=== PATIENT | female | born 1980 | race Caucasian/White ===

== ENCOUNTER → 2021-12-24 11:06 | Outpatient (BNVA) | payer BC, MEDICAID, SELFPAY | PROVIDERS: PCP Nurse Practitioner Family; Visit Provider Nurse Practitioner Family | DX: E11.9 Type 2 diabetes mellitus without complications (principal); E03.9 Hypothyroidism, unspecified; E55.9 Vitamin D deficiency, unspecified; E78.5 Hyperlipidemia, unspecified; E61.1 Iron deficiency; I10 Essential (primary) hypertension | CPT/HCPCS: 80053; 80061; 82306; 83036; 83550; 84439; 84443; 84481 ==

== ENCOUNTER 2022-01-27 11:47 | Outpatient (CLI) | payer BC, MEDICAID, SELFPAY ==
--- NOTE | 2022-01-27 11:45 | US_ITS ---
WS: [id number] TRANSABDOMINAL AND TRANSVAGINAL PELVIC ULTRASOUND HISTORY: N92.1 - Excessive and frequent menstruation with irregular periods. COMPARISON: None available. Uterus: 9.2 cm x 6.3 cm x 5.2 cm. Poorly visualized uterus. Uterus appears slightly lobulated. There may be an anterior fibroid measuring 2.8 x 2.5 x 3.5 cm. No shadowing. Endometrium: 1.1 cm. Normal homogeneity and size. Right ovary: 2.4 cm x 3.0 cm x 2.2 cm; no solid or cystic mass. Normal vascularity. Small follicle me asures 2.0 x 1.6 x 2.0 cm. Left ovary: 2.1 cm x 1.8 cm x 1.2 cm; no solid or cystic mass. Normal vascularity. No free fluid in the cul-de-sac. US/US pelvic complete* [id number] IMPRESSION: 1. Limited evaluation of the uterus. 2. Possible anterior myometrial fibroid measuring 2.8 x 2.5 x 3.5 cm. There is mild heterogeneity and lobulation along the anterior myometrium. No shadowing as expected from a fibroid. 3. Negative ovaries.
== END 2022-01-27 11:48 | disposition home or self-care (01) ==
LOC: RAD 11:47
PROVIDERS: PCP Nurse Practitioner Family; Visit Provider Nurse Practitioner Family
DX: N92.1 Excessive and frequent menstruation with irregular cycle (principal)
CPT/HCPCS: 76856

== ENCOUNTER → 2022-03-27 10:00 | Outpatient (BNVA) | payer BC, MEDICAID, SELFPAY | PROVIDERS: PCP Nurse Practitioner Family; Visit Provider Obstetrics & Gynecology | DX: R87.619 Unspecified abnormal cytological findings in specimens from cervix uteri (principal); D25.9 Leiomyoma of uterus, unspecified | CPT/HCPCS: 87624; 88305 ==

== ENCOUNTER → 2022-04-28 11:58 | Outpatient (BNVA) | payer BC, MEDICAID, SELFPAY | PROVIDERS: PCP Nurse Practitioner Family; Visit Provider Nurse Practitioner Family | DX: G43.909 Migraine, unspecified, not intractable, without status migrainosus (principal); E78.5 Hyperlipidemia, unspecified; E11.9 Type 2 diabetes mellitus without complications; I10 Essential (primary) hypertension; R53.83 Other fatigue; E03.9 Hypothyroidism, unspecified | CPT/HCPCS: 80053; 80061; 83036; 85025 ==

== ENCOUNTER → 2022-06-03 13:17 | Outpatient (BNVA) | payer BC, MEDICAID, SELFPAY | PROVIDERS: PCP Nurse Practitioner Family; Visit Provider Obstetrics & Gynecology | DX: R87.619 Unspecified abnormal cytological findings in specimens from cervix uteri (principal) | CPT/HCPCS: 88305 ==

== ENCOUNTER 2022-07-07 10:38 | Observation (INO) | payer BC, MEDICAID, SELFPAY ==
[2022-07-06 12:26] LABS: Basophils # 0.1 10^3/uL (0.0-0.1); Basophils % 0.8 %; Eosinophils # 0.3 10^3/uL (0.0-0.8); Eosinophils % 3.5 %; Hemoglobin 13.5 g/dL (11.5-15.3); Lymphocytes # 1.9 10^3/uL (0.8-4.8); Lymphocytes % 22.4 %; Mean Corpuscular HGB Conc 32.9 g/dL (30.0-36.0); Mean Corpuscular Hemoglobin 29.6 pg (28.0-34.0); Mean Corpuscular Volume 89.9 fl (81-99); Mean Platelet Volume 10.3 fL (7.4-10.4); Monocytes # 0.5 10^3/uL (0.2-0.9); Monocytes % 6.2 %; Neutrophils # 5.66 10^3/uL (1.8-7.7); Neutrophils % 66.6 %; Nucleated Red Blood Cells % 0 %; Platelet Count 312 10^3/cmm (130-400); Red Blood Count 4.56 10^6/uL (4.1-5.3); Red Cell Distribution Width 12.8 % (12.1-15.1); White Blood Count 8.5 10^3/uL (4.0-10.0)
[2022-07-06 12:40] LABS: OR HCG Qualitative Urine Negative (Negative)
[2022-07-06 12:41] LABS: Anion Gap 13.2 (5-19); Calcium 9.6 mg/dL (8.5-10.5); Carbon Dioxide 29 mmol/L (22-29); Chloride 101 mmol/L (98-107); Glomerular Filtration Rate 109.1 mL/min (90-130); Glucose 93 mg/dL (65-115); Osmolality Calculated 285 mOsm/kg (285-295); Potassium 4.2 mmol/L (3.5-5.1); Sodium 139 mmol/L (136-145)
[2022-07-06 12:42] VITALS: BMI 38.4
[2022-07-06 12:42] LABS: Blood Urea Nitrogen 4 mg/dL (6-20)
--- NOTE | 2022-07-06 13:12 | ANES.PREANE2 ---
Pre-Anesthetic Assessment Height/Weight: Height 1.65 m Weight 104.78 kg Preop Diagnosis: uterine fibroids, AUB, abnormal pap Operation Date: 07/07/22 07:00 Proposed Procedures p Laparoscopic assisted vaginal hysterectomy, bilateral salpingo-oophorectomy 46920,N81.4, N92.0,R87.610(Not Applicable) - Patsy Crouch MD Familial anesthetic complications: None Social Tobacco and No alcohol Exam alert, oriented x 3, clear to auscultation bilaterally and regular rate & rhythm CV/HEM Hypertension Metabolic Diabetes Mellitus, Hyperlipidemia, Morbid Obesity and Thyroid Disease Neuropsych Headache Anesthetic Plan ASA status: 3 Anesthesia: General Risk of > 500 ml blood loss (7ml/kg in children): No Medications/Allergies Home Medications Medication Instructions Recorded Confirmed Last Taken Type aspirin 325 mg tablet 325 mg PO DAILY 12/24/21 07/06/22 07/01/22 History cetirizine 10 mg tablet (Zyrtec) 10 mg PO BEDTIME 12/24/21 07/06/22 07/06/22 History docusate sodium 250 mg capsule 250 mg PO BEDTIME 12/24/21 07/06/22 07/06/22 History vitamin B complex (B 1 tab PO DAILY 12/24/21 07/06/22 07/06/22 History Complex-Vitamin B12 tablet) biotin 5 mg capsule 5 mg PO DAILY 03/27/22 07/06/22 07/06/22 History naproxen 500 mg tablet (Naprosyn) 500 mg PO .COMPLEX #30 tabs 04/28/22 07/06/22 07/06/22 Rx citalopram 40 mg tablet 40 mg PO BEDTIME 07/06/22 07/06/22 07/06/22 History ferrous sulfate 325 mg (65 mg 325 mg PO DAILY 07/06/22 07/06/22 07/06/22 History iron) tablet liraglutide 0.6 mg/0.1 mL (18 mg/3 1.2 mg SUBCUT BEDTIME 07/06/22 07/06/22 07/06/22 History mL) subcutaneous pen injector (Victoza 3-Alpesh) metformin 1,000 mg tablet 1,000 mg PO BID 07/06/22 07/06/22 07/06/22 History pen needle, diabetic 32 gauge x #200 ea 07/06/22 07/06/22 Unknown Rx 04/22 (TechLITE Pen Needle) propranolol 120 mg capsule,24 120 mg PO BEDTIME 07/06/22 07/06/22 07/06/22 History hr,extended release simvastatin 40 mg tablet 40 mg PO BEDTIME 07/06/22 07/06/22 07/05/22 History thyroid (pork) 90 mg tablet (MARKETING PROGRAMS MANAGER 90 mg PO DAILY 07/06/22 07/06/22 07/06/22 History Thyroid) venlafaxine 75 mg capsule,extended 75 mg PO DAILY 07/06/22 07/06/22 07/06/22 History release 24 hr Allergies Allergy/AdvReac Type Severity Reaction Status Date / Time hydrocodone [From Lortab] Allergy ADR-Migrain Verified 07/06/22 12:15 e [facility] Anesthesia Medical History (Updated 07/06/22 @ 12:36 by Patsy Crouch MD) Iron deficiency Psychiatric care RhD negative Type 2 diabetes mellitus Surgical History (Updated 07/06/22 @ 12:36 by Patsy Crouch MD) History of appendectomy History of carpal tunnel surgery History of tonsillectomy History of tubal ligation Family History Grandmother Breast cancer Colon cancer Stroke Mother Diabetes Heart disease Hypercholesteremia Hypertension Thyroid disease Denies family history of Ovarian cancer Uterine cancer Data Anesthesia 07/06/22 12:05 07/06/22 12:05 Short CBC 07/06/22 Range/Units 12:05 WBC 8.5 (4.0-10.0) 10^3/uL Hgb 13.5 (11.5-15.3) g/dL Hct 41.0 (37.0-47.0) % MCV 89.9 (81-99) fl Plt Count 312 (130-400) 10^3/cmm Neut % (Auto) 66.6 % Neut # (Auto) 5.66 (1.8-7.7) 10^3/uL BMP 07/06/22 12:05 Sodium 139 Potassium 4.2 Chloride 101 Carbon Dioxide 29 BUN 4 L Creatinine 0.6 Glucose 93 Calcium 9.6 Blood Bank 07/06/22 12:05 Blood Type O Negative Rho(D) Type Negative Antibody Screen Negative Cardiac Studies: No Data to Display
[2022-07-07] VITALS (16 sets, daily range): BP systolic 91–135; BP diastolic 60–95; PULSE 48–98; RESP 14–18; TEMP 36.1–37; O2SAT 90–100
[2022-07-07 06:20] LABS: Glucose Point of Care 144 mg/dL (70-110)
[2022-07-07] MEDS: CELEcoxib 200 mg Capsule 400 MG PO (06:30)
[2022-07-07] MEDS: gabapentin 300 mg Capsule PO (06:30)
[2022-07-07] MEDS: phenazopyridine 100 mg Tablet 200 MG PO ×3 (06:31→22:02)
[2022-07-07] MEDS: scopolamine 1.5 Patch 1 PATCH TRANSDERMA (06:31)
--- NOTE | 2022-07-07 06:41 | P.ANESUD_ITS ---
Pre-Anesthetic Update Pre-Anesthetic Assessment: Date of Surgery/Procedure: 07/07/22 Preop Ann gnosis: uterine fibroids, AUB, abnormal pap Proposed Procedure: Operation Date: 07/07/22 07:00 Proposed Procedures p Laparoscopic assisted vaginal hysterectomy, bilateral salpingo-oophorectomy 34032,N81.4, N92.0,R87.610(Not Applicable) - Patsy Crouch MD Any changes to Pre-Anesthetic Assessment?: No Last Intake: Intake Last Liquid Date 07/06/22 Last Liquid Time 21:00 Last Solid Date 07/06/22 Last Solid Time 21:00 Labs Last 48hrs: Short CBC 07/06/22 Range/Units 12:05 WBC 8.5 (4.0-10.0) 10^3/ uL Hgb 13.5 (11.5-15.3) g/dL Hct 41.0 (37.0-47.0) % MCV 89.9 (81-99) fl Plt Count 312 (130-400) 10^3/c mm Neut % (Auto) 66.6 % Neut # (Auto) 5.66 (1.8-7.7) 10^3/u L BMP 07/06/22 12:05 Sodium 139 Potassium 4.2 Chloride 101 Carbon Dioxide 29 BUN 4 L Creatinine 0.6 Glucose 93 Calcium 9.6 Blood Bank 07/06/22 12:05 Blood Type O Negative Rho(D) Type Negative Antibody Screen Negative Vitals: Temperature 97 F L 07/07/22 06:35 Temperature Source Temporal Artery S can 07/07/22 06:35 Pulse Rate 97 07/07/22 06:35 Pulse Rhythm 07/07/22 06:08 Pulse Strength 3+ Normal 07/07/22 06:08 Respiratory Rate 18 07/07/22 06:35 Blood Pressure 124/95 07/07/22 06:35 Blood Pressure Kacey n 104 07/07/22 06:35 Pulse Oximetry 99 07/07/22 06:35 Oxygen Delivery Me thod 07/07/22 06:35 Exam: Pre-Anes Outpt Exam: alert, oriented x 3, clear to auscultation bilaterally and regular rate & rhythm Cardiac Studies: No Data to Display
--- NOTE | 2022-07-07 07:00 | W.PM.OPSUD ---
Surgery/Procedure H&P Update DATE OF PROCEDURE: July 07, 2022 DATE H&P PERFORMED: 07/06/22 H&P UPDATE INFORMATION: I have reviewed H&P completed within last 30 days, I have examined patient prior to procedure and No changes to prior documentation PREOP DIAGNOSIS: uterine fibroids, AUB, abnormal pap PLANNED PROCEDURE: Operation Date: 07/07/22 07:00 Proposed Procedures p Laparoscopic assisted vaginal hysterectomy, bilateral salpingo-oophorectomy 10541,N81.4, N92.0,R87.610(Not Applicable) - Patsy Crouch MD Related Problem List Diagnoses (1) Uterine prolapse: (2) ASCUS with positive high risk HPV: (3) Uterine fibroid: (4) Menometrorrhagia:
[2022-07-07] MEDS: ceFAZolin 2,000 MG in sodium chloride 0.9% (plus) 50 ML 100 MG IV ×3 (07:08→22:01)
[2022-07-07] MEDS: vasopressin 20 unit/mL INJ INJECTION ×2 (08:21→08:29)
[2022-07-07] MEDS: sodium chloride 0.9% 1,000 ML 30 ML IV (08:26)
[2022-07-07 09:43] LABS: Urine Appearance Cloudy (CLEAR); Urine Color Orange (Yellow)
[2022-07-07 09:44] LABS: Add Urine Microscopic? YES
--- NOTE | 2022-07-07 10:28 | P.OP_ITS ---
Operative Report Date of procedure: July 07, 2022 Pre-op diagnosis: Preop Diagnosis uterine fibroids, AUB, abnormal pap Post-op diagnosis: same Post-op findings: 10 week sized uterus. Normal appearing tubes and ovaries. Mild pelvic adhesions Procedure done: LAVH with BSO Specimens removed/disposition: uterus, tubes and ovaries sent to pathology Surgeon: Patsy Crouch Anesthesia: General Estimated blood loss (mL): 300 IV fluids (mL): 1,600 Urine output (mL): 200 Complications: none Findings: enlarged uterus. Normal appearing tubes and ovaries. Condition: stable Disposition: PACU Procedure: The patient was taken to the operating room where general anesthesia was administered and found to be adequate. She was prepped and draped in the normal sterile fashion in the dorsal lithotomy position in [facility]. A Tyson catheter was placed. A weighted speculum was placed into the vagina and the anterior lip of the cervix was grasped with a single tooth tenaculum. The Zumi uterine manipulator was placed. The weighted speculum was removed. The gloves were changed and attention was turned to the abdomen. A 5 mm supraumbilical incision was made. Using a 5 mm port with the camera, the port was placed into the abdomen. The abdomen was insufflated. Two low, lateral 5 mm ports were placed on the left and right under direct visualization from the camera. The right tube was grasped and elevated. Using the laparoscopic cautery, the infundibulopelvic ligament was cauterized and cut inferior to the tube and ovary. This cautery was followed along the broad ligament to the uterus. This was performed the same way on the left. The uteroovarian ligaments as well as the round ligaments were ligated. Attention was then turned to the vaginal portion of the procedure. The weighted speculum was placed into the vagina. The zumi manipulator was removed. The single tooth tenaculum was removed and replaced with the emely's tenaculum. 10 mL of dilute Pitressin was injected at the vesicovaginal junction. A circumferential incision was made at the vesicovaginal junction and the vaginal mucosa reflected cephalad. The posterior peritoneum was entered sharply with the Metzenbaum scissors and the long weighted speculum replaced. Using the Lara clamps the uterosacral ligaments were clamped cut and suture- ligated. The anterior peritoneum was entered sharply with the metzenbaum scissors. Then sequentially the uterine arteries and cardinal ligaments were clamped cut and suture-ligated. A single-tooth tenaculum was used to deliver the uterus. The remaining segement of the utero-ovarian ligaments were clamped cut and suture-ligated bilaterally and the specimen was removed. There was good hemostasis with only mild bleeding from the cuff. The peritoneum was closed with a pursestring using 2-0 Vicryl. The vaginal cuff was closed with 0 Vicryl in a running locked pattern incorporating the uterosacral ligaments into the lateral aspects of the vaginal cuff. The Tyson catheter was removed and the cystoscope advanced into the bladder. The patient was given pyridium and bilateral spill was noted. There were no injuries or deficits noted in the bladder. The cystoscope was removed and the Tyson was replaced. Vaginal packing was placed for good hemostasis. The gloves and gowns were changed and attention was turned to the abdomen. The ports were closed with 2-0 monocryl with skin glue. The patient tolerated the procedure well. Sponge lap and needle counts were correct x3. She was taken to the recovery room in stable condition.
[2022-07-07 10:57] LABS: Bacteria Urine TRACE /hpf; Mucus Urine 2+ /hpf; RBC Urine 0-4 /hpf (0-2); Triple Phosphate Crystal Urine 0-4 /hpf; WBC Urine 0-4 /hpf (0-5)
[2022-07-07] MEDS: oxyCODONE-APAP 5-325 mg Tablet PO ×2 (11:19→18:34)
[2022-07-07] MEDS: lactated ringers 1,000 ML 125 ML IV (11:21)
--- NOTE | 2022-07-07 13:29 | ANE.PACU2 ---
Inpatient post-anesthesia follow up: Airway intact: Yes Vital signs: Temperature 97.5 F Pulse Rate 78 Respiratory Rate 16 Blood Pressure 91/60 Pulse Oximetry 91 Oxygen Delivery Me thod Room Air Oxygen Flow Rate 2 Fraction of Inspir ed Oxygen Hydration adequate: Yes Nausea and vomiting: No Pain level: 1 Mental status: Baseline
--- NOTE | 2022-07-07 15:00 | PC.NURSE ---
Pt reports feeling like she needs to have a bowel movement. Educated pt that it is most likely the vaginal packing causing the pressure. Pt adamant that she go sit on the commode. Pt was not able to have a bowel movement. Pt strained and about a foot of the vaginal packing came out. This assembly instructions writer cut the packing off and discarded it. There was scant amount of blood on packing.
[2022-07-07] MEDS: ketorolac 30 mg/mL INJ IVP ×2 (15:57→22:02)
[2022-07-07] MEDS: docusate sodium 100 mg Capsule PO (18:31)
[2022-07-07] MEDS: metformin 500 mg Tablet 1000 MG PO (18:31)
[2022-07-07] MEDS: simethicone 80 mg Chew PO (19:31)
--- NOTE | 2022-07-07 23:52 | PC.NURSE ---
Addendum entered by Gerald Miller RN 07/07/22 23:52: At around 2250 patient put call light on, this nurse went into pt room and found ruiz catheter had came undone and leaked on the floor. This nurse cleaned it up was unable to tell how much urine leaked onto floor. Original Note: at approximatelyb
[2022-07-08 03:23] VITALS: RESP 17
[2022-07-08] MEDS: oxyCODONE-APAP 5-325 mg Tablet PO (03:23)
[2022-07-08] MEDS: ketorolac 30 mg/mL INJ IVP (04:08)
[2022-07-08 04:20] VITALS: BP 115/77; PULSE 87; RESP 16; TEMP 36.9; O2SAT 96
[2022-07-08 04:23] LABS: Hematocrit 35.6 % (37.0-47.0); Hemoglobin 11.1 g/dL (11.5-15.3); Mean Corpuscular HGB Conc 31.2 g/dL (30.0-36.0); Mean Corpuscular Hemoglobin 28.8 pg (28.0-34.0); Mean Corpuscular Volume 92.5 fl (81-99); Mean Platelet Volume 10.1 fL (7.4-10.4); Platelet Count 273 10^3/cmm (130-400); Red Blood Count 3.85 10^6/uL (4.1-5.3); Red Cell Distribution Width 12.8 % (12.1-15.1); White Blood Count 14.7 10^3/uL (4.0-10.0)
[2022-07-08] MEDS: phenazopyridine 100 mg Tablet 200 MG PO (08:16)
--- NOTE | 2022-07-08 09:02 | P.DS_ITS ---
Discharge Providers Date of Admission: 07/07/22 10:38 Date of Discharge: July 08, 2022 Attending Provider at Admission: Patsy Crouch MD Attending Provider at Discharge: Patsy Crouch MD Primary Care Provider: STEVE Guzman Diagnoses at Discharge Discharge Diagnosis (1) Uterine prolapse: Status: Acute (2) ASCUS with positive high risk HPV: Status: Acute (3) Uterine fibroid: Status: Acute (4) Menometrorrhagia: Status: Acute Hospital Course Hospital Course The patient was admitted for surgery. She did well postoperatively and was ready for discharge on day #1. Physical Exam Narrative: Doing well this morning. No concerns. Const: COMMON NORMALS: no acute distress, patient oriented x3, no limitations, healthy appearing, alert and well nourished GENERAL APPEARANCE: cooperative, comfortable, well kempt and well developed ORIENTATION/CONSCIOUSNESS: Yes awake, Yes oriented to person, Yes oriented to place and Yes oriented to time Resp: COMMON NORMALS: normal respiratory effort EFFORT & INSPECTION: Yes able to speak in complete sentences GI: COMMON NORMALS: Soft to palpation and non-tender PALPATION: Yes Soft to palpation Extremity: COMMON NORMALS: no calf tenderness Neuro: COMMON NORMALS: patient oriented x3 SENSORIUM/ORIENTATION: Yes alert, Yes oriented to person, Yes oriented to place and Yes oriented to time Psych: COMMON NORMALS: mental status grossly normal, Normal thought process present, cooperative, normal affect and speech normal APPEARANCE: Yes well kempt SPEECH: Yes normal speech THOUGHT PROCESS: Normal thought process present Urinary Catheter Management: Tyson: Cath Placed During This Visit: yes, but has since been removed by the nurse Reason for Continuing Indwelling Catheter: Decision to DC Catheter Urinary Catheter Date of Insertion: 07/07/22 Urinary Catheter Time of Insertion: 07:53 Date Urinary Catheter Removed: 07/08/22 Time Urinary Catheter Discontinued: 04:19 Discharge Data Studies Completed and Pending Pending at discharge Category Date Time Status Urine Culture Routine Lab 07/06/22 12:41 Results Pathology: Surgical [PTH] Routine Pth 07/07/22 09:44 Received Laboratory Results WBC 14.7 10^3/uL (4.0-10.0) H 07/08/22 04:15 RBC 3.85 10^6/uL (4.1-5.3) L 07/08/22 04:15 Hgb 11.1 g/dL (11.5-15.3) L 07/08/22 04:15 Hct 35.6 % (37.0-47.0) L 07/08/22 04:15 MCV 92.5 fl (81-99) 07/08/22 04:15 MCH 28.8 pg (28.0-34.0) 07/08/22 04:15 MCHC 31.2 g/dL (30.0-36.0) 07/08/22 04:15 RDW 12.8 % (12.1-15.1) 07/08/22 04:15 Plt Count 273 10^3/cmm (130-400) 07/08/22 04:15 MPV 10.1 fL (7.4-10.4) 07/08/22 04:15 Neut % (Auto) 66.6 % 07/06/22 12:05 Lymph % (Auto) 22.4 % 07/06/22 12:05 [place] % (Auto) 6.2 % 07/06/22 12:05 Eos % (Auto) 3.5 % 07/06/22 12:05 Baso % (Auto) 0.8 % 07/06/22 12:05 Neut # (Auto) 5.66 10^3/uL (1.8-7.7) 07/06/22 12:05 Lymph # (Auto) 1.9 10^3/uL (0.8-4.8) 07/06/22 12:05 [place] # (Auto) 0.5 10^3/uL (0.2-0.9) 07/06/22 12:05 Eos # (Auto) 0.3 10^3/uL (0.0-0.8) 07/06/22 12:05 Baso # (Auto) 0.1 10^3/uL (0.0-0.1) 07/06/22 12:05 Nucleated RBC % (auto) 0 % 07/06/22 12:05 Nucleated RBCs # 0.0 /100WBC 07/06/22 12:05 Sodium 139 mmol/L (136-145) 07/06/22 12:05 Potassium 4.2 mmol/L (3.5-5.1) 07/06/22 12:05 Chloride 101 mmol/L (98-107) 07/06/22 12:05 Carbon Dioxide 29 mmol/L (22-29) 07/06/22 12:05 Anion Gap 13.2 (5-19) 07/06/22 12:05 BUN 4 mg/dL (6-20) L 07/06/22 12:05 Creatinine 0.6 mg/dL (0.5-0.9) 07/06/22 12:05 GFR Calculation 109.1 mL/min (90-130) 07/06/22 12:05 Glucose 93 mg/dL (65-115) 07/06/22 12:05 POC Glucose 144 mg/dL (70-110) H 07/07/22 06:13 Calculated Osmolality 285 mOsm/kg (285-295) 07/06/22 12:05 Calcium 9.6 mg/dL (8.5-10.5) 07/06/22 12:05 Urine Color [place] (Yellow) 07/07/22 07:53 Urine Appearance Cloudy (CLEAR) A 07/07/22 07:53 Urine pH TNP 07/07/22 07:53 Ur Specific [place] TNP 07/07/22 07:53 Urine Protein TNP 07/07/22 07:53 Urine Glucose (UA) TNP 07/07/22 07:53 Urine Ketones TNP 07/07/22 07:53 Urine Blood TNP 07/07/22 07:53 Urine Nitrate TNP 07/07/22 07:53 Urine Bilirubin TNP 07/07/22 07:53 Urine Urobilinogen TNP 07/07/22 07:53 Ur Leukocyte Esterase TNP 07/07/22 07:53 Urine RBC 0-4 /hpf (0-2) H 07/07/22 07:53 Urine WBC 0-4 /hpf (0-5) H 07/07/22 07:53 Ur Squamous Epith Cells 10-15 /hpf (0-5) H 07/07/22 07:53 Triple Phos Crystals 0-4 /hpf H 07/07/22 07:53 Amorphous Sediment Not Reportable 07/07/22 07:53 Urine Bacteria Trace /hpf (NONE) 07/07/22 07:53 Urine Mucus 2+ /hpf 07/07/22 07:53 Urine HCG, Qual Negative (Negative) 07/06/22 12:14 Blood Type O Negative 07/06/22 12:05 Rho(D) Type Negative 07/06/22 12:05 Antibody Screen Negative 07/06/22 12:05 Vitals Last Vital Signs Temp 98.5 F 07/08/22 04:20 Pulse 87 07/08/22 04:20 Resp 16 07/08/22 04:20 BP 115/77 07/08/22 04:20 Pulse Ox 96 07/08/22 04:20 O2 Del Method 07/08/22 04:20 O2 Flow Rate 2 07/07/22 10:55 Discharge Plan Discharge Patient Disposition: Home Condition: Stable Prescriptions: New ibuprofen 800 mg Tablet 800 mg PO Q8H Qty: 30 0RF oxycodone-acetaminophen 5-325 mg Tablet 1 tab PO Q4H PRN (Reason: Moderate To Severe Pain) Qty: 30 0RF docusate sodium 100 mg Capsule 100 mg PO BID Qty: 60 0RF Continued docusate sodium 250 mg capsule 250 mg PO BEDTIME vitamin B complex [B Complex-Vitamin B12] Tablet 1 tab PO DAILY aspirin 325 mg tablet 325 mg PO DAILY cetirizine [Zyrtec] 10 mg tablet 10 mg PO BEDTIME biotin 5 mg capsule 5 mg PO DAILY naproxen [Naprosyn] 500 mg tablet 500 mg PO .COMPLEX Qty: 30 0RF Rx Instructions: Take 2 tablets by mouth at onset of the Aura not more than 4 x a week. (DME) pen needle, diabetic [TechLITE Pen Needle] 32 gauge x 1/4 needle See Rx Instructions .ROUTE .COMPLEX Qty: 200 0RF Dose Instruction: USE WITH VICTOZA Rx Instructions: USE WITH VICTOZA ferrous sulfate 325 mg (65 mg iron) Tablet 325 mg PO DAILY venlafaxine 75 mg capsule,extended release 24hr 75 mg PO DAILY Rx Instructions: Take 1 capsule by mouth once daily citalopram 40 mg tablet 40 mg PO BEDTIME Rx Instructions: Take 1 tablet by mouth once daily simvastatin 40 mg tablet 40 mg PO BEDTIME Rx Instructions: Take 1 tablet by mouth once daily metformin 1,000 mg tablet 1,000 mg PO BID Rx Instructions: Take 1 tablet by mouth twice daily propranolol 120 mg capsule,extended release 24 hr 120 mg PO BEDTIME thyroid (pork) [SOAP BOILER Thyroid] 90 mg tablet 90 mg PO DAILY Rx Instructions: Take 1 tablet by mouth once daily; needs labs Victoza 3-Alpesh 0.6 mg/0.1 mL (18 mg/3 mL) pen injector 1.2 mg SUBCUT BEDTIME Rx Instructions: INJECT 1.2MG (0.2ML) SUBCUTANEOUSLY EVERY 24 HOURS Discharge Orders: Discharge Order (Routine); Ordered 07/08/22 Ordered By: Patsy Crouch Referrals: Patsy Crouch MD [Physician] - 07/13/22 9:00 am (Your 6 week post operative follow up appointment with Dr. Crouch is August 17, 2022 at 4:00 p.m.) Patient Instructions: Ibuprofen (By mouth), Oxycodone/Acetaminophen (By mouth), Laxative, Stool Softeners (By mouth), Laparoscopic Oophorectomy (GEN), Laparoscopic Hysterectomy (GEN), OB Abdominal Surgery - [facility], OB Discharge Report, OB Laproscopic Surgery - [facility], OB Anesthesia Instructions, OB Food/Drug Interaction Guide, Opioid Safety Discharge Attestations Time Spent in Discharge Care*: less than 30 min Quality Metrics Clinical Quality Measures [ No reported AMI, CVA or VTE this stay] Coding Level of Care Code Acute Code for Chg Fwd Diagnoses Uterine prolapse N81.4 ASCUS with positive high risk HPV Uterine fibroid D25.9 Menometrorrhagia N92.1
[2022-07-08 09:40] VITALS: BP 125/81; PULSE 93; RESP 17; TEMP 37.3; O2SAT 95
== END 2022-07-08 09:37 | disposition home or self-care (01) ==
LOC: OBGYN 10:38
PROVIDERS: Anesthesiology; Admitting Provider Obstetrics & Gynecology; PCP Nurse Practitioner Family; Visit Provider Obstetrics & Gynecology
PROC: 0UT9FZZ Resection of Uterus, Via Natural or Artificial Opening With Percutaneous Endoscopic Assistance (ICD-10-PCS; CPT 58552; principal; 2022-07-07 07:00)
DX: N81.4 Uterovaginal prolapse, unspecified (principal); D25.9 Leiomyoma of uterus, unspecified; N92.1 Excessive and frequent menstruation with irregular cycle; E11.9 Type 2 diabetes mellitus without complications; E78.5 Hyperlipidemia, unspecified; E66.01 Morbid (severe) obesity due to excess calories; Z68.38 Body mass index [BMI] 38.0-38.9, adult; Z79.82 Long term (current) use of aspirin
CPT/HCPCS: 58552; 36415; 36416; 80048; 81001; 81025; 82962; 84703; 85025; 85027; 86850; 86900; 87086; 88307; 96374; 96376; G0378; J0131; J0330; J0461; J0690; J1100; J1170; J1200; J1885; J2250; J2370; J2405; J2704; J2710; J3010; J3490; J7030; J7120

== ENCOUNTER → 2022-08-25 10:06 | Outpatient (BNVA) | payer BC, MEDICAID, SELFPAY | PROVIDERS: PCP Nurse Practitioner Family; Visit Provider Nurse Practitioner Family | DX: E78.5 Hyperlipidemia, unspecified (principal); E55.9 Vitamin D deficiency, unspecified; E03.9 Hypothyroidism, unspecified; E11.9 Type 2 diabetes mellitus without complications | CPT/HCPCS: 80053; 80061; 82306; 82670; 83036; 84443; 85025 ==

== ENCOUNTER → 2022-08-31 10:18 | Outpatient (BNVA) | payer BC, MEDICAID, SELFPAY | PROVIDERS: PCP Nurse Practitioner Family; Visit Provider Obstetrics & Gynecology | DX: R87.619 Unspecified abnormal cytological findings in specimens from cervix uteri (principal) | CPT/HCPCS: 87624 ==